=== PATIENT | female | born 1985 | race Caucasian/White ===

== ENCOUNTER → 2021-10-03 10:14 | Outpatient (CLI) | payer OTHER, SELFPAY ==
--- NOTE | ~2021-10-03 | US_ITS ---
EXAMINATION: US abdomen complete DATE: 10/03/2021 10:46 INDICATION: Splenomegaly. TECHNIQUE: Multiple grayscale and Doppler ultrasound images of the abdomen were obtained. COMPARISON: None FINDINGS: Abdominal aorta is normal in caliber. Inferior vena cava is normal. The visualized portions of the head, body, and tail of the pancreas are normal. There are multiple hyperechoic masses in the liver measuring up to 14 mm. There is a 2.9 cm cyst in the liver. No liver surface nodularity. There is normal flow in main portal vein. The gallbladder is normal in size. No gallstones or gallbladder wall thickening. There was no sonographic Coto sign. The common duct is normal and measures 2 mm. T he kidneys are normal in size. The spleen is normal in size. At the midline, there is a 15.8 x 5.9 x 15.8 cm hypoechoic mass. IMPRESSION: 1. 15.8 cm mass in the abdomen at the midline suspicious for malignancy such as lymphoma or less like ly a desmoid. 2. Liver masses measuring up to 14 mm. The differential diagnosis includes hemangiomas, focal nodular hyperplasia, and metastatic disease. CT abdomen and pelvis without and with contrast is recommended. Reviewed, dictated and finalized at location A. [facility] IMPRESSION: 1. 15.8 cm mass in the abdomen at the midline suspicious for malignancy such as lymphoma or less likely a desmoid. 2. Liver masses measuring up to 14 mm. The differential diagnosis includes yared ngiomas, focal nodular hyperplasia, and metastatic disease. CT abdomen and pelv is without and with contrast is recommended.
== END ==
PROVIDERS: PCP Internal Medicine; Visit Provider Internal Medicine
DX: R16.1 Splenomegaly, not elsewhere classified (principal); R19.00 Intra-abdominal and pelvic swelling, mass and lump, unspecified site
CPT/HCPCS: 76700